=== PATIENT | male | born 1955 | race Caucasian/White ===

== ENCOUNTER → 2017-04-17 | Day surgery (SDC) | payer OTHER ==
[~2017-04-17] VITALS: Ht 165.1 cm; Wt 86.2 kg
[~2017-04-17] MED LIST: 0.9% Sodium Chloride 1,000 ML IV PRN; LISI1TAB9 PO; Lactated Ringer's 1,000 ML IV ONE; SIMV40TA5 PO; Sodium Chloride LOK Flush 10 mL Syringe IV PRN; fentaNYL-PF 50 mCg/mL 2 mL Inj IVPUSH PRN
[2017-04-17 09:27] VITALS: BP 122/90; PULSE 94; RESP 17; O2SAT 96
--- NOTE | 2017-04-17 10:07 | PCM.ENDCOL ---
Colonoscopy Date of Service: Apr 17, 2017 Physician Chaitanya Patel MD Pre Procedure Diagnosis: Screening history of polyp Post Procedure Dx & Findings: Polyp hemorrhoids diverticuli rectal ulcer Procedure Colonoscopy PROCEDURE IN DETAIL: Prep adequate Withdrawal time 12 minutes After unremarkable rectal examination the Olympus video colonoscope was inserted patient's anal canal and was advanced to cecum. Landmarks were identified including the ileocecal valve and appendiceal orifice. Scope was withdrawn systematically. Visualized colonic mucosa showed healthy shiny mucosa with normal healthy-appearing vasculature. In the transverse colon, there were 3 polyps. They are all 1 mm in size. They are all removed completely using cold forceps. In the sigmoid colon there was a 1 mm polyp which was removed completely using cold forceps. In the sigmoid colon, there were few small diverticuli. In the rectum, there was a 2-3 mm clean-based ulcer. This was biopsied. In the rectum retroflexion was done which showed hemorrhoids. Anal canal was inspected carefully on the way out and hemorrhoids noted. Impression History of polyp Polyp 4 status post complete removal diverticula rectal ulcer clean-based 2-3 mm Hemorrhoids Recommendation Repeat colonoscopy 3 years Diverticular diet and avoid NSAIDs Presedation Assessment Risks and Benefits Informed consent was obtained from the patient after all risks and benefits including but not limited to drug reaction, infection, pain, bleeding, perforation, as well as alternatives were discussed. Patient monitoring Continuous pulse oximetry, cardiac monitoring, blood pressure monitoring, IV access, and oxygen at 2L per nasal cannula. Periprocedural Fentanyl: Fentanyl 100mcg Incrementally Midazolam: Midazolam 4mg Incrementally Complications There were no periprocedural complications identified. Post Procedure Plan Post Procedure Recommendations 1. Restrict activities today. 2. Resume normal activities in the morning. 3. Resume medications. 4. Patient informed of normal post procedure side effects as bloating, drowsiness, blood streaking in the stool. 5. average risk CRCS. If colon polyps come back as: -Hyperplastic- can repeat colonoscopy in 10 years -Tubular adenoma- repeat colonoscopy in 5 years -Tubulovillous/villous adenoma- repeat colonoscopy in 3 years -If any dysplasia- return to clinic as soon as possible 6. Please don't hesitate to call me with any questions. Chaitanya Patel MD Apr 17, 2017 10:07
[2017-04-17 10:10] VITALS: BP 96/63; PULSE 67; RESP 14; O2SAT 93
[2017-04-17 10:20] VITALS: BP 104/67; PULSE 64; RESP 16; O2SAT 95
[2017-04-17 10:27] VITALS: BP 106/79; PULSE 71; RESP 16; O2SAT 94
--- NOTE | 2017-04-18 14:33 | PATH ---
SURGICAL PATHOLOGY Attending Physician:Chaitanya Patel M.D. CASE STATUS: Signed Out PATIENT NAME: KIMBERLEY FUENTES PID: [id number] : 1955 DATE COLLECTED:04/17/2017 21:36 SPECIMEN: 1: Colon, Polyp 2: Colon, Polyp 3: Rectum, Biopsy CLINICAL HISTORY: 1). TRANSVERSE POLYPS 2). SIGMOID POLYPS 3). RECTAL ULCER BIOPSY FINAL DIAGNOSIS: 1. Transverse Colon, Polyp, Biopsies: Portion of tubular adenoma x1; negative for high-grade dysplasia. Portions of sessile serrated adenoma x2. 2. Sigmoid Colon, Polyp, Biopsy: Sessile serrated adenoma. 3. Rectal Ulcer, Biopsy: Very superficial, detached fragments of colonic epithelium with no diagnostic abnormality. There is no subepithelial tissue identified for evaluation. ICD10: K63.5 GROSS DESCRIPTION: The specimen is received in three formalin filled containers labeled with the patient's name. 1). The specimen is labeled "transverse polyps" and consists of 3 tiny portions of tissue which aggregate to 0.2 x 0.2 x 0.2 CM. The specimen is entirely submitted in cassette 1A. 2). The specimen is labeled "sigmoid polyp" and consists of a 0.2 x 0.2 x 0.2 CM portion of tissue which is entirely submitted in cassette 2A. 3). The specimen is labeled "rectal ulcer" and consists of 2 extremely tiny portions of tissue which are entirely submitted in cassette 3A. 04/17/2017DC ICD-9 CODES: CPT CODES: 1: 32937 2: 74577 3: 87239 Electronically Signed Out Neisha Honeycutt MD [facility] [address], [place] [address] Technical component performed at [facility], [facility] [address], [place], [address]
== END | disposition home or self-care (01) ==
LOC: END 00:32
PROVIDERS: ATTEND Internal Medicine
DX: D12.3 Benign neoplasm of transverse colon (principal); D12.5 Benign neoplasm of sigmoid colon; K57.30 Diverticulosis of large intestine without perforation or abscess without bleeding; K64.8 Other hemorrhoids; K62.6 Ulcer of anus and rectum; R19.5 Other fecal abnormalities; I10 Essential (primary) hypertension; E78.5 Hyperlipidemia, unspecified; F17.210 Nicotine dependence, cigarettes, uncomplicated; Z79.899 Other long term (current) drug therapy
CPT/HCPCS: 45380; G0500; J2250; J3010; J7030